=== PATIENT | female | born 1950 | race Caucasian/White ===

== ENCOUNTER 2020-07-24 15:24 | Emergency (ER) | payer MEDICARE, OTHER | END 2020-07-24 18:00 | disposition home or self-care (01) | LOC: ER1 15:24 | DX: S52.501D Unspecified fracture of the lower end of right radius, subsequent encounter for closed fracture with routine healing (principal); F17.220 Nicotine dependence, chewing tobacco, uncomplicated; X58.XXXD Exposure to other specified factors, subsequent encounter | CPT/HCPCS: 73110; 99283 ==